=== PATIENT | female | born 1985 | race Hispanic/Latino ===

== ENCOUNTER 2017-05-25 | Emergency (ER) | payer OTHER, SELFPAY ==
--- NOTE | 2017-05-25 01:53 | EDPHYS ---
Physician Documentation [facility] Name: Ruth Kirk Age: 31 yrs Sex: Female : 1985 Arrival Date: 05/25/2017 Time: 01:24 Bed 13 Private MD: ED Physician Kade Valdez HPI: 05/25 02:32 This 31 yrs old Female presents to ER via Ambulatory with complaints of Back snw Pain, Vomiting, Redness of Eye. 02:32 The patient presents with pain and spasm, tightness. The symptoms are located in the snw upper right back. Onset: The symptoms/episode began/occurred gradually, 4 day(s) ago, and became persistent. The pain does not radiate. Associated signs and symptoms: The patient has no apparent associated signs or symptoms. The problem was sustained told she had gallstones. + 35 wk . Severity of symptoms: At their worst the symptoms were moderate. It is unknown whether or not the patient has had similar symptoms in the past. The patient has been recently seen by a physician: the patient's primary care provider, in [facility]. FHT 150bpm. 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 - Social history:: Smoking status: Patient/guardian denies using tobacco. ROS: 02:22 Constitutional: Negative for fever, chills, and weight loss, Eyes: Negative for injury, snw pain, redness, and discharge, ENT: Negative for injury, pain, and discharge, Neck: Negative for injury, pain, and swelling, Cardiovascular: Negative for chest pain, palpitations, and edema, Respiratory: Negative for shortness of breath, cough, wheezing, and pleuritic chest pain, Back: Negative for injury and pain, : Negative for injury, bleeding, discharge, and swelling, MS/Extremity: Negative for injury and deformity, Skin: Negative for injury, rash, and discoloration, Neuro: Negative for headache, weakness, numbness, tingling, and seizure. Exam: 02:21 Constitutional: This is a well developed, well nourished patient who is awake, alert, snw and in no acute distress. Head/Face: Normocephalic, atraumatic. Eyes: Pupils equal round and reactive to light, extra-ocular motions intact. Lids and lashes normal. Conjunctiva and sclera are non-icteric and not injected. Cornea within normal limits. Periorbital areas with no swelling, redness, or edema. ENT: Nares patent. No nasal discharge, no septal abnormalities noted. Tympanic membranes are normal and external auditory canals are clear. Oropharynx with no redness, swelling, or masses, exudates, or evidence of obstruction, uvula midline. Mucous membranes moist. Neck: Trachea midline, no thyromegaly or masses palpated, and no cervical lymphadenopathy. Supple, full range of motion without nuchal rigidity, or vertebral point tenderness. No Meningismus. Chest/axilla: Normal chest wall appearance and motion. Nontender with no deformity. No lesions are appreciated. Cardiovascular: Regular rate and rhythm with a normal S1 and S2. No gallops, murmurs, or rubs. Normal PMI, no JVD. No pulse deficits. Respiratory: Lungs have equal breath sounds bilaterally, clear to auscultation and percussion. No rales, rhonchi or wheezes noted. No increased work of breathing, no retractions or nasal flaring. 02:21 Back: No spinal tenderness. No costovertebral tenderness. Full range of motion. Skin: Warm, dry with normal turgor. Normal color with no rashes, no lesions, and no evidence of cellulitis. MS/ Extremity: Pulses equal, no cyanosis. Neurovascular intact. Full, normal range of motion. Neuro: Awake and alert, GCS 15, oriented to person, place, time, and situation. Cranial nerves II-XII grossly intact. Motor strength 5/5 in all extremities. Sensory grossly intact. Cerebellar exam normal. Normal gait. 02:21 Abdomen/GI: Inspection: gravid appearance, is noted. 02:29 Neuro: Exam negative for acute changes. snw Vital Signs: 01:28 BP 120 / 80; Pulse 96; Resp 18; Temp 99.1(O); Pulse Ox 98% on R/A; Weight 79.83 kg; ea Height 5 ft. 6 in. (167.64 cm); Pain 7/10; 02:00 BP 122 / 70; Pulse 90; Resp 18; Temp 98.9(O); Pulse Ox 99% on R/A; ea 01:28 Body Mass Index 28.41 (79.83 kg, 167.64 cm) ea MDM: 01:53 Patient medically screened. snw 02:29 Data reviewed: vital signs, nurses notes. Data interpreted: Pulse oximetry: on room air snw is 98 %. Interpretation: normal. Counseling: I had a detailed discussion with the patient and/or guardian regarding: the historical points, exam findings, and any diagnostic results supporting the discharge/admit diagnosis, the presence of at least one elevated blood pressure reading (>120/80) during this emergency department visit, the need for outpatient follow up, to return to the emergency department if symptoms worsen or persist or if there are any questions or concerns that arise at home. ED course: Pt is a , 35 wk IUP, states normal . States she was told she had a gallstone 4 days ago at [facility]. . 05/25 01:55 Order name: BRODERICK'margarito; Complete Time: 02:12 snw Administered Medications: No medications were administered Disposition: 05/25/17 01:53 Discharged to Home. Impression: Conjunctivitis, state. - Condition is Stable. - Discharge Instructions: Biliary Colic, Conjunctivitis (Viral and Bacterial), Third Trimester of , [id number]. - Prescriptions for Vigamox 0.5 % Ophthalmic Drops - instill 1 drop by OPHTHALMIC route every 8 hours for 7 days; 5 milliliter. - Medication Reconciliation Form, Thank You Letter, Antibiotic Education, Prescription Opioid Use form. - Follow up: Private Physician; When: 2 - 3 days; Reason: Recheck today's complaints, Continuance of care, Re-evaluation by your physician. Addendum: 05/29/2017 08:24 Co-signature as Attending Physician, Kade Valdez MD. g s Signatures: Kinga Washington, LADDERMAN-C LADDERMAN-Csnw Perri Garcia, RN RN Kade Price MD MD
--- NOTE | 2017-05-25 01:53 | ER ---
Nurse's Notes [facility] Name: Ruth Kirk Age: 31 yrs Sex: Female : 1985 Arrival Date: 05/25/2017 Time: 01:24 Bed 13 Private MD: Diagnosis: Conjunctivitis; state Presentation: 05/25 01:28 Presenting complaint: Patient states: Back pain and "gallbladder pain", that started ea four days ago and has been constant for the past three days, reports she went to [facility] and was diagnosed with gall stones reports she has a 5 mm gallstone. 02:02 Transition of care: patient was not received from another setting of care. Onset of ea symptoms was May 25, 2017. Care prior to arrival: None. 02:02 Acuity: ELVA 4 ea 02:02 Method Of Arrival: Ambulatory ea Triage Assessment: 01:28 General: Appears in no apparent distress. Behavior is calm, cooperative, appropriate ea for age. Pain: Complains of pain in right upper quadrant Pain radiates to back Quality of pain is described as aching. EENT: Sclera/Cornea are reddened in outer aspect of conjuctiva of left eye and inner aspect of conjunctiva of left eye. Neuro: Level of Consciousness is awake, alert, obeys commands, Oriented to person, place, time. Cardiovascular: Heart tones present Patient's skin is warm and dry. Respiratory: Airway is patent Respiratory effort is even, unlabored, Respiratory pattern is regular, symmetrical. Derm: Skin is dry, Skin is normal, Skin temperature is warm. Musculoskeletal: Range of motion: intact in all extremities. 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 - Social history:: Smoking status: Patient/guardian denies using tobacco. Screenin:28 Abuse screen: Denies threats or abuse. Nutritional screening: No deficits noted. ea Tuberculosis screening: No symptoms or risk factors identified. Fall Risk None identified. Assessment: 02:10 Reassessment: Patient and/or family updated on plan of care and expected duration. Pain ea level reassessed. Patient is alert, oriented x 3, equal unlabored respirations, skin warm/dry/pink. Neuro: Level of Consciousness is awake, alert, obeys commands, Oriented to person, place, time. Vital Signs: 01:28 BP 120 / 80; Pulse 96; Resp 18; Temp 99.1(O); Pulse Ox 98% on R/A; Weight 79.83 kg; ea Height 5 ft. 6 in. (167.64 cm); Pain 7/10; 02:00 BP 122 / 70; Pulse 90; Resp 18; Temp 98.9(O); Pulse Ox 99% on R/A; ea 01:28 Body Mass Index 28.41 (79.83 kg, 167.64 cm) ea Vitals: 02:11 Heart Tones 150. ea ED Course: 01:24 Patient arrived in ED. am2 01:27 Kinga Washington FNP-C [facility]. snw 01:27 Kade Valdez MD is Attending Physician. snw 01:28 Arm band placed on right wrist. ea 01:28 Patient has correct armband on for positive identification. Bed in low position. Call ea light in reach. Side rails up X 1. 01:35 Perri Garcia, RN is Primary Nurse. ea 02:02 Triage completed. ea 02:11 No provider procedures requiring assistance completed. Patient did not have IV access ea during this emergency room visit. Administered Medications: No medications were administered Outcome: 01:53 Discharge ordered by . snw 02:12 Discharged to home ambulatory, with significant other. ea 02:12 Condition: good 02:12 Discharge instructions given to patient, Instructed on discharge instructions, follow up and referral plans. medication usage, Demonstrated understanding of instructions, follow-up care, medications. 02:18 Patient left the ED. ea Signatures: Kinga Washington FNP-C FNP-Csnw Magali Jewell am2 Perri Garcia RN RN ea Davies, Jonathon, RN RN jd3 Corrections: (The following items were deleted from the chart) 01:32 01:32 Mikey Dinh RN is Primary Nurse. jd3 jd3 02:34 01:28 BP 120 / 80; Pulse 176bpm; Resp 18bpm; Pulse Ox 98% RA; Temp 99.1F Oral; 79.83 ea kg; Height 5 ft. 6 in.; BMI: 28.4; Pain 7/10; ea
== END 2017-05-25 02:18 | disposition home or self-care (01) ==
CPT/HCPCS: 99283